=== PATIENT | female | born 1990 | race African-American/Black ===

== ENCOUNTER → 2016-08-29 | Outpatient (CLI) | payer OTHER | LOC: RAD 13:33 | PROVIDERS: ATTEND Student in an Organized Health Care Education/Training Program | DX: N97.9 Female infertility, unspecified (principal) | CPT/HCPCS: 58340; 74740 ==

== ENCOUNTER 2018-04-08 19:48 | Emergency (ER) | payer OTHER ==
--- NOTE | 2018-04-08 21:32 | ER Document Report ---
ED General - General Chief Complaint: Abscess Stated Complaint: WOUND LEFT ARM WORSENING Time Seen by Provider: 04/08/18 21:31 Notes: 27 year old female presents with blistering to left forearm. Stated the she was outside walking her dogs and came inside then noticed blistering to left forearm. Stated she does not remember seeing anything bite her and also doesn't remember hitting her arm on anything. States left forearm itching but does not hurt. Two 1cm x 1cm blisters noted left posterior forearm. The more distal one the Pt. had already popped, stated clear fluid d/c. One is still semi intact with very scant amount of obvious serous drainage. No surrounding redness or areas of fluctuance or induration. no active purulent drainage. Pt has no h/o MRSA infx. Pt. denies CP, SOB, abd pain, VOMITING, or diarrhea. Past medical history: PCO S, type 2 diabetes medications: Metformin, phentermine, estrogen control Allergies: None Vertical history: None She denies illicit drug use, smoking, alcohol use TRAVEL OUTSIDE OF THE [place] IN LAST 30 DAYS: No - Related Data Allergies/Adverse Reactions: No Known Allergies Allergy (Verified 09/06/13 23:31) Past Medical History - General Information source: Patient - Social History Smoking Status: Unknown if Ever Smoked Lives with: Family Family History: Reviewed & Not Pertinent - Immunizations Immunizations up to date: Yes Hx Diphtheria, Pertussis, Tetanus Vaccination: No Review of Systems - Review of Systems Constitutional: See HPI EENT: No symptoms reported Cardiovascular: See HPI Respiratory: See HPI Gastrointestinal: No symptoms reported Genitourinary: No symptoms reported Female Genitourinary: No symptoms reported Musculoskeletal: No symptoms reported Skin: See HPI Hematologic/Lymphatic: No symptoms reported Neurological/Psychological: No symptoms reported Physical Exam - Vital signs Vitals: Temp Pulse Resp BP Pulse Ox 97.8 F 93 18 135/89 H 100 04/08/18 19:53 04/08/18 19:53 04/08/18 19:53 04/08/18 19:53 04/08/18 19:53 - Notes Notes: GENERAL: Alert, interacts well. No acute distress. HEAD: Normocephalic, atraumatic. EYES: Pupils equal, round, and reactive to light. Extraocular movements intact. ENT: Oral mucosa moist NECK: Full range of motion. Supple. Trachea midline. LUNGS: Clear to auscultation bilaterally, no wheezes, rales, or rhonchi. No respiratory distress. HEART: Regular rate and rhythm. EXTREMITIES: Moves all 4 extremities spontaneously. normal radial and dorsalis pedis pulses bilaterally. NEUROLOGICAL: Alert and oriented x3. Normal speech. PSYCH: Normal affect, normal mood. SKIN: Warm, dry, normal turgor. Two lesions each 1cm x1cm, one with obvious serous drainage, 1 the patient states she has already popped without surrounding erythema, induration, fluctuance Course - Re-evaluation Re-evalutation: Will treat for allergic reaction. Does not seem to be infectious at this point. No surrounding redness or swelling. Obvious serous drainage noted to blister area. Return precautions given. - Vital Signs Vital signs: Temp Pulse Resp BP Pulse Ox 98.7 F 84 16 121/73 100 04/08/18 22:17 04/08/18 22:17 04/08/18 22:17 04/08/18 22:17 04/08/18 22:17 Discharge - Discharge Clinical Impression: Allergic reaction Qualifiers: Encounter type: initial encounter Qualified Code(s): T78.40XA - Allergy, unspecified, initial encounter Allergic contact dermatitis Qualifiers: Contact dermatitis trigger: unspecified trigger Qualified Code(s): L23.9 - Allergic contact dermatitis, unspecified cause Condition: Stable Disposition: HOME, SELF-CARE Additional Instructions: As we discussed you are reading treated for an allergic contact dermatitis. You should keep the area clean and do not play with it as discussed. Take Benadryl 50 mg every 6 hours as needed for itching. Use prescription cream up to 3 times a day also as needed for itching. Follow-up with primary care in 24- 48 hours. Return to the emergency room should redness or swelling around the lesion increase, you get purulent drainage, develop a fever, or any other concerning symptoms Prescriptions: Hydrocortisone/Oatmeal/Aloe/E [Hydrocortisone 1% Cream] 28.4 gm TP PRN PRN #1 cream.gm. PRN Reason: Referrals: IRENE HINOJOSA MD [ACTIVE STAFF] - Follow up as needed
[2018-04-08] MEDS ORDERED: DIPHENHYDRAMINE HCL 50 MG CAPSULE PO ONE (21:45)
[2018-04-08 22:19] VITALS: BP 121/73
== END 2018-04-08 22:18 | disposition home or self-care (01) ==
LOC: ER 19:48
DX: L23.9 Allergic contact dermatitis, unspecified cause (principal); E11.9 Type 2 diabetes mellitus without complications; E28.2 Polycystic ovarian syndrome; Z79.84 Long term (current) use of oral hypoglycemic drugs; Z79.899 Other long term (current) drug therapy; Z79.3 Long term (current) use of hormonal contraceptives
CPT/HCPCS: 99282